=== PATIENT | male | born 1980 | race Caucasian/White ===

== ENCOUNTER 2017-11-27 03:25 | Emergency (ER) | payer OTHER, MEDICAID, SELFPAY ==
[2017-11-27 03:34] VITALS: BP 142/90; PULSE 73; RESP 16; TEMP 36.3; O2SAT 100; BMI 21.1
--- NOTE | 2017-11-27 03:36 | DI.RAD.S_ITS ---
PROCEDURE: XR CHEST 1V INDICATIONS: Upper back pain TECHNIQUE: One view of the chest was acquired. COMPARISON: None. FINDINGS: Surgical changes and devices: None. Lungs and pleura: No pleural effusions or pneumothorax. Lungs are clear. Mediastinum: Mediastinal contours appear normal. Heart size is normal. Aortic arch appears normal. No mediastinal widening. Bones and chest wall: No suspicious bony lesions. Mild upper thoracic curvature convex to the left. Overlying soft tissues appear unremarkable. IMPRESSION: No acute cardiopulmonary or osseous abnormality. Dictated by: Yony Garza M.D. on 11/27/2017 at 8:25 Approved by: Yony Garza M.D. on 11/27/2017 at 8:27
--- NOTE | 2017-11-27 03:41 | ED.NECK ---
HPI - Neck Pain/Injury General Chief Complaint: Neck Pain/Injury Stated Complaint: Pain Time Seen by Provider: 11/27/17 03:27 Source: patient Mode of arrival: EMS Limitations: no limitations History of Present Illness HPI Narrative: 37-year-old male here for evaluation of upper back and lower neck pain. Patient states that he has chronic back pain. States that last evening he took his normal 2 mg hydromorphone at home approximately 9 o'clock. States that he woke up at approximately 2 o'clock in the morning with worsening upper back and lower neck pain. No trauma. States that he took 2 more of his 2 mg hydromorphone pills approximately 45 min prior to arrival here in the emergency department. States that this is his normal pain only worse. Some problems breathing secondary to the pain. Some nausea secondary to the pain. Also has lower back pain but he states this is at baseline for him. Related Data Home Medications Medication Instructions Recorded Confirmed armodafinil [Nuvigil] 150 mg PO QDAY #0 10/10/16 fluticasone #0 10/10/16 fluticasone-salmeterol [Advair INH BID #0 10/10/16 Diskus] memantine [Namenda] 10 mg PO TID #0 10/10/16 metformin [Glucophage] 500 mg PO BIDCC #0 10/10/16 [MYDAYIS] 50 mg PO QDAY #0 06/23/17 guanfacine 2 mg PO QDAY #0 06/23/17 cyclobenzaprine 10 mg PO Q8HP PRN #0 09/19/17 hydromorphone 2 - 4 mg PO Q4HP PRN #0 09/19/17 metaxalone 800 mg PO TIDP PRN #0 09/19/17 tamsulosin [Flomax] 0.8 mg PO QDAY #0 09/19/17 Allergies Allergy/AdvReac Type Severity Reaction Status Date / Time NSAIDS (Non-Steroidal AdvReac Mild STATES ORAL Verified 11/27/17 03:54 Anti-Inflamma [NSAIDS (NON-STEROIDAL ANTI-INFLAMMA] Review of Systems Constitutional Denies chills, Denies fever(s), Denies lethargy and Denies weakness ENT Ears, Nose, Mouth, and Throat: Reports neck pain Cardiovascular Denies chest pain, Denies irregular heart rhythm, Denies lightheadedness, Denies palpitations, Reports dyspnea (Secondary to the pain) and Denies orthopnea Respiratory Denies cough, Reports dyspnea (Secondary to the pain), Denies stridor and Denies wheezing Gastrointestinal Gastrointestinal: Denies abdominal pain, Denies cramping, Denies diarrhea and Reports nausea (Secondary to the pain) Musculoskeletal Reports back pain and Reports neck pain Integumentary/Breasts Denies pruritus, Denies erythema, Denies rash and Denies wounds Neurologic Denies weakness Endocrine Denies palpitations Hematologic/Lymphatic Denies easy bruising Allergic/Immunologic Denies wheezing Exam Initial Vital Signs Initial Vital Signs: Vital Signs Temperature 97.4 F L 11/27/17 03:34 Pulse Rate 73 11/27/17 03:34 Respiratory Rate 16 11/27/17 03:34 Blood Pressure 142/90 H 11/27/17 03:34 Pulse Oximetry 100 11/27/17 03:34 Const General: cooperative and well developed Nutritional Appearance: well nourished Orientation: alert, awake, oriented x3 and not confused [facility] Head: normal to inspection and normocephalic Resp Effort & Inspection: normal respiratory effort, able to speak in complete sentences, no respiratory distress and no use of accessory muscles Auscultation: clear to auscultation bilaterally, no rales, no rhonchi and no wheezes Cardio Rate: regular rate Rhythm: regular rhythm Heart Sounds: no click, no gallops, no murmurs and no rubs Pulses: normal peripheral pulses GI Inspection: non-distended Palpation: soft, no hepatosplenomegaly, No guarding, No pulsatile mass and No tender Auscultation: normal bowel sounds Back/Spine/Pelvis Back: normal to inspection, back tenderness and No CVA tenderness Cervical Spine: No cervical spasm, cervical spinal tenderness and No step off deformity Thoracic/Lumbar Spine: thoracic and lumbar spine normal to inspection, No thoraco-lumbar spasm and thoracic spinal tenderness Skin General: no rashes or lesions noted, No jaundice and No petechiae Neuro General: alert, oriented x3, gait normal and no focal motor deficits Speech: speech normal Course Orders Ordered: ED Orders 11/27/17 03:36 XR chest 1V Stat Discontinued Medications Hydromorphone HCl (Dilaudid) 1 mg IM NOW ONE Stop: 11/27/17 03:38 Last Admin: 11/27/17 03:44 Dose: 1 mg Ketorolac Tromethamine (Toradol) 30 mg IM NOW ONE Stop: 11/27/17 03:37 Last Admin: 11/27/17 03:43 Dose: 30 mg Vital Signs - 8 hr 11/27/17 03:34 11/27/17 04:14 Temperature 97.4 F L Pulse Rate 73 64 Respiratory Rate 16 16 Blood Pressure 142/90 H Blood Pressure [Right Arm] 134/88 H Pulse Oximetry 100 95 MDM - Neck Pain/Injury Imaging Data Chest x-ray: Attestation: I personally reviewed and interpreted this imaging study as follows: My impression: Normal size heart No pneumothorax No pneumonia MDM Narrative Medical decision making narrative: Patient fell sleep here in the emergency department after the IM medication. Upon further evaluation patient reports a resolution of his symptoms. Suspected acute exacerbation of his chronic pain. Informed him he needed to contact his primary doctor to discuss pain management. He states that there is a consult placed for pain management. He was given return precautions. Will hold on further workup for now. He expressed understanding and agreement with plan Discharge Plan Departure Patient Disposition: Home, Self-Care Clinical Impression: Back pain Instructions: Back Pain (Alternative Therapy), Activity May Be Better then Rest for Low Back Pain Recovery, Thoracic Back Pain Activity Restrictions/Additional Instructions: You need to continue all of your medications as instructed. Contact your primary doctor to discuss long-term treatment of your back pain. Return to the emergency department for any new or worsening symptoms Prescriptions: No Action metformin [Glucophage] 500 MG tablet 500 mg PO BIDCC Qty: 0 RF: 0 fluticasone-salmeterol [Advair Diskus] 500 MCG/50 MCG blister with device INH BID Qty: 0 RF: 0 fluticasone 16 GM spray,suspension Qty: 0 RF: 0 memantine [Namenda] 10 MG tablet 10 mg PO TID Qty: 0 RF: 0 armodafinil [Nuvigil] 150 MG tablet 150 mg PO QDAY Qty: 0 RF: 0 [MYDAYIS] 50 mg PO QDAY Qty: 0 RF: 0 guanfacine 2 MG tablet extended release 24 hr 2 mg PO QDAY Qty: 0 RF: 0 hydromorphone 2 MG tablet 2 - 4 mg PO Q4HP PRNQty: 0 RF: 0 cyclobenzaprine 10 MG tablet 10 mg PO Q8HP PRNQty: 0 RF: 0 tamsulosin [Flomax] 0.4 MG capsule,extended release 24hr 0.8 mg PO QDAY Qty: 0 RF: 0 metaxalone 800 MG tablet 800 mg PO TIDP PRNQty: 0 RF: 0
[2017-11-27] MEDS: KETOROLAC 60 MG/2 ML VIAL 30 MG IM (03:43)
[2017-11-27] MEDS: HYDROMORPHONE 2 MG INJ 1 MG IM (03:44)
[2017-11-27 04:14] VITALS: BP 134/88; PULSE 64; RESP 16; O2SAT 95
[2017-11-27 05:14] VITALS: BP 126/88; PULSE 81; RESP 18; O2SAT 99
== END 2017-11-27 05:15 | disposition home or self-care (01) ==
LOC: ED 05:26
PROVIDERS: Emergency Provider Emergency Medicine; Family Provider Family Medicine; PCP Family Medicine
DX: M54.5 Low back pain (principal)
CPT/HCPCS: 71045; 96372; 99282; 99283; J1170; J1885

== ENCOUNTER 2018-01-20 15:50 | Emergency (ER) | payer OTHER, MEDICAID, SELFPAY ==
[2018-01-20 15:57] VITALS: BP 153/103; PULSE 65; RESP 15; O2SAT 99
--- NOTE | 2018-01-20 16:16 | PC.NURSE ---
GLF today, pt reports he lost control of his wheelchair during transfer to toilet, was unable to contact help, reports found on floor approx 5 hours later by PT, pt reports back and neck pain however reports these as chronic and unchanged after fall, denies LOC, denies injury, pt and friend concern r/t lack of director of clinical education for pt
[2018-01-20 17:24] LABS: Add Manual Diff / Slide Review NO; Basophils Percent Auto 0.7 % (0-2); Eosinophils Percent Auto 1.9 % (2-4); Hematocrit 42.7 % (41-53); Hemoglobin 14.9 g/dL (13.5-17.5); Mean Corpuscular HGB Conc 34.8 % (30-36); Mean Corpuscular Hemoglobin 31.7 PG (26-34); Mean Corpuscular Volume 91.1 fL (80-100); Monocytes Percent Auto 9.7 % (3-14); Neutrophils Absolute Auto 6200 /uL (3000-5900); Neutrophils Percent Auto 69.7 % (50-75); Platelet Count 213 X10^3/uL (150-400); Red Blood Cell Count 4.69 X10^6/uL (4.5-5.9); Red Cell Distribution Width 14.2 % (11.6-14.8); White Blood Cell Count 8.9 X10^3/uL (4.5-11.0)
[2018-01-20 17:36] LABS: Alanine Aminotransferase 30 IU/L (21-72); Albumin 4.4 g/dL (3.5-5.0); Alkaline Phosphatase 55 U/L (38-126); Aspartate Aminotransferase 18 IU/L (17-59); BUN Creatinine Ratio 18.8 (6-22); Bilirubin Total 0.7 mg/dL (0.2-1.3); Blood Urea Nitrogen 15 mg/dL (9-20); Calcium 9.7 mg/dL (8.4-10.2); Carbon Dioxide 31 mmol/L (22-32); Chloride 102 mmol/L (98-107); Estimated Glomerular Filt Rate > 60.0 mL/min (>60); Globulin 2.2 g/dL (1.7-4.1); Glucose 98 mg/dL (70-100); HEMOLYSIS < 15 (0-50); Sodium 140 mmol/L (137-145); Total Protein 6.6 g/dL (6.3-8.2)
[2018-01-20 19:16] LABS: Creatine Kinase 60 U/L (55-170)
--- NOTE | 2018-01-20 19:26 | ED_ITS ---
HPI - Back Pain/Injury <BETO Weeks - Last Filed: 01/20/18 22:37> General Chief Complaint: Back Pain/Injury Stated Complaint: Found laying in Bathroom Time Seen by Provider: 01/20/18 16:05 History of Present Illness HPI Narrative: 37-year-old male with history of psychological and neuro disorders here for complaint of falling out of his wheelchair earlier today. He is currently unable to speak due to 1 of his neurological deficits of unknown etiology he is currently a being evaluated by Neurology at [facility]. He also reports that he has muscle spasms to all extremities at times. He states that he had muscle spasms earlier today when he was transferring out of his wheelchair and he fell on the bathroom floor. He states that he does not feel any increased pain into any of the extremities he denies hitting his head. No loss of consciousness. He is unable to ambulate however this is not new for him. He denies any other concerns or complaints at this time. He has good sensation to all 4 extremities. He does have range of motion to all 4 extremities although when he tries to move his extremities he starts to get variable muscle spasms. He states that he was on the floor for several hours before he was able to get help. Positive p.o. intake. No nausea vomiting MD Complaint: fall Related Data Home Medications Medication Instructions Recorded Confirmed armodafinil [Nuvigil] 150 mg PO QDAY #0 10/10/16 01/20/18 memantine [Namenda] 10 mg PO TID #0 10/10/16 01/20/18 metformin [Glucophage] 500 mg PO BIDCC #0 10/10/16 01/20/18 dextroamphetamine-amphetamine 50 mg PO QDAY #0 06/23/17 01/20/18 [Mydayis] hydromorphone 2 - 4 mg PO Q4HP PRN #0 09/19/17 01/20/18 tamsulosin [Flomax] 0.8 mg PO QDAY #0 09/19/17 01/20/18 Flovent HFA 1 puff INHALATION DIRECTED 01/20/18 01/20/18 Remeron 1 dose PO DIRECTED 01/20/18 01/20/18 Sinemet 1 dose PO DIRECTED 01/20/18 01/20/18 bisacodyl 1 tab PO DIRECTED 01/20/18 01/20/18 fluticasone-salmeterol [Advair 1 puff INHALATION BID 01/20/18 01/20/18 Diskus] guanfacine [Intuniv ER] 3 tab PO DAILY 01/20/18 01/20/18 metaxalone 1 tab PO TID PRN 01/20/18 01/20/18 Allergies Allergy/AdvReac Type Severity Reaction Status Date / Time latex Allergy Verified 01/20/18 16:10 NSAIDS (Non-Steroidal AdvReac Mild STATES ORAL Verified 11/27/17 03:54 Anti-Inflamma [NSAIDS (NON-STEROIDAL ANTI-INFLAMMA] Review of Systems <BETO Weeks - Last Filed: 01/20/18 22:37> Review of Systems Fall from wheelchair earlier today Constitutional Denies chills, Denies fever(s), Denies lethargy and Denies weakness Eyes Denies change in vision, Denies eye discharge, Denies irritation and Denies loss of vision ENT Ears, Nose, Mouth, and Throat: Denies change in voice, Denies neck pain and Denies sore throat Cardiovascular Denies chest pain, Denies irregular heart rhythm, Denies lightheadedness, Denies palpitations, Denies dyspnea, Denies dyspnea on exertion and Denies orthopnea Respiratory Denies cough, Denies dyspnea, Denies dyspnea on exertion and Denies wheezing Gastrointestinal Gastrointestinal: Denies abdominal pain, Denies change in bowel habits, Denies diarrhea, Denies nausea and Denies vomiting Genitourinary Denies hematuria, Denies flank pain, Denies urinary incontinence and Denies urinary urgency Musculoskeletal Denies neck pain Integumentary/Breasts Denies pruritus, Denies erythema, Denies rash and Denies wounds Neurologic Denies confusion, Denies loss of vision and Denies weakness Psychiatric Denies anxiety, Denies confusion, Denies depression, Denies homicidal ideation and Denies suicidal ideation Endocrine Denies palpitations Hematologic/Lymphatic Denies easy bruising Allergic/Immunologic Denies wheezing Exam <BETO Weeks - Last Filed: 01/20/18 22:37> Initial Vital Signs Initial Vital Signs: Vital Signs Pulse Rate 65 01/20/18 15:57 Respiratory Rate 15 01/20/18 15:57 Blood Pressure 153/103 H 01/20/18 15:57 Pulse Oximetry 99 01/20/18 15:57 Const General: cooperative and well developed Nutritional Appearance: well nourished Orientation: alert, awake, oriented x3 and not confused Limitations: language barrier (Patient unable to talk however is able to effectively communicate on his phone by typing) [facility] Head: normal to inspection, normocephalic and atraumatic Mouth: oral mucosae normal and moist mucous membranes Eyes General: appearance normal, both eyes and all related structures Eyelids: eyelids normal Conjunctivae: conjunctivae normal Sclera: sclerae normal Pupils: PERRL EOM: EOM intact bilaterally Neck Neck: normal visual inspection, trachea midline, No lymphadenopathy, No midline deformity and No JVD Lymphatic: No lymphedema Chest Chest: normal inspection of the chest Resp Effort & Inspection: normal respiratory effort, able to speak in complete sentences, no respiratory distress and no use of accessory muscles Auscultation: clear to auscultation bilaterally, no rales, no rhonchi and no wheezes Cardio Rate: regular rate Rhythm: regular rhythm Heart Sounds: no click, no gallops, no murmurs and no rubs Pulses: normal peripheral pulses Skin General: no rashes or lesions noted, No jaundice and No petechiae Neuro Speech: other (Patient is unable to speak at all not new finding) Gait: other (Patient is unable to ambulate not a new finding) Motor: fasciculations (Patient does have range of motion however does have random muscle spasms to all 4 extremities when he does try to move.) and movement abnormality noted <Tessy Menard DO - Last Filed: 01/23/18 01:23> Initial Vital Signs Initial Vital Signs: Vital Signs Pulse Rate 65 01/20/18 15:57 Respiratory Rate 15 01/20/18 15:57 Blood Pressure 153/103 H 01/20/18 15:57 Pulse Oximetry 99 01/20/18 15:57 Course <BETO Weeks - Last Filed: 01/20/18 22:37> Orders Ordered: ED Orders 01/20/18 17:17 Complete Blood Count AUTO DIFF Stat Comprehensive Metabolic Panel Stat Creatine Kinase Stat Vital Signs - 8 hr 01/20/18 15:57 01/20/18 20:08 01/20/18 21:29 Temperature 98.2 F Pulse Rate 65 69 70 Respiratory Rate 15 14 16 Blood Pressure 153/103 H 140/80 H Blood Pressure [Right Arm] 148/85 H Pulse Oximetry 99 98 98 <Tessy Menard DO - Last Filed: 01/23/18 01:23> Orders Ordered: ED Orders 01/20/18 17:17 Complete Blood Count AUTO DIFF Stat Comprehensive Metabolic Panel Stat Creatine Kinase Stat Vital Signs - 8 hr 01/20/18 15:57 01/20/18 20:08 01/20/18 21:29 Temperature 98.2 F Pulse Rate 65 69 70 Respiratory Rate 15 14 16 Blood Pressure 153/103 H 140/80 H Blood Pressure [Right Arm] 148/85 H Pulse Oximetry 99 98 98 MDM - Back Pain/Injury <BETO Weeks - Last Filed: 01/20/18 22:37> Lab Data Result diagrams: 01/20/18 17:17 01/20/18 17:17 Lab Results 01/20/18 01/20/18 01/20/18 Range/Units 17:17 17:17 17:17 WBC 8.9 (4.5-11.0) X10^3/uL RBC 4.69 (4.5-5.9) X10^6/uL Hgb 14.9 (13.5-17.5) g/dL Hct 42.7 (41-53) % MCV 91.1 (80-100) fL MCH 31.7 (26-34) PG MCHC 34.8 (30-36) % RDW 14.2 (11.6-14.8) % Plt Count 213 (150-400) X10^3/uL Neut % (Auto) 69.7 (50-75) % Lymph % (Auto) 18.0 L (25-40) % [place] % (Auto) 9.7 (3-14) % Eos % (Auto) 1.9 L (2-4) % Baso % (Auto) 0.7 (0-2) % Neut # (Auto) 6200 H (6292-9334) /uL Sodium 140 (137-145) mmol/L Potassium 4.0 (3.4-5.1) mmol/L Chloride 102 (98-107) mmol/L Carbon Dioxide 31 (22-32) mmol/L BUN 15 (9-20) mg/dL Creatinine 0.80 (0.66-1.25) mg/dL Estimated GFR > 60.0 (>60) mL/min BUN/Creatinine Ratio 18.8 (6-22) Glucose 98 (70-100) mg/dL Calcium 9.7 (8.4-10.2) mg/dL Total Bilirubin 0.7 (0.2-1.3) mg/dL AST 18 (17-59) IU/L ALT 30 (21-72) IU/L Alkaline Phosphatase 55 (38-126) U/L Total Creatine Kinase 60 (55-170) U/L Total Protein 6.6 (6.3-8.2) g/dL Albumin 4.4 (3.5-5.0) g/dL Globulin 2.2 (1.7-4.1) g/dL Albumin/Globulin Ratio 2.0 (1.0-2.8) MDM Narrative Medical decision making narrative: Patient here with no acute complaints at this time. Fall is due to his ongoing issues with muscle spasms. Patient with chronic neurological issues however no acute issues today. Normal exam no signs of trauma. CK was obtained and was negative. CBC and Chem panel was also obtained and was unremarkable. Urinalysis was normal. Patient is informed to follow up with Neurology as scheduled. Follow up with primary care provider. Return emergency room for any worsening symptoms <Tessy Menard, - Last Filed: 01/23/18 01:23> Lab Data Lab Results 01/20/18 01/20/18 01/20/18 Range/Units 17:17 17:17 17:17 WBC 8.9 (4.5-11.0) X10^3/uL RBC 4.69 (4.5-5.9) X10^6/uL Hgb 14.9 (13.5-17.5) g/dL Hct 42.7 (41-53) % MCV 91.1 (80-100) fL MCH 31.7 (26-34) PG MCHC 34.8 (30-36) % RDW 14.2 (11.6-14.8) % Plt Count 213 (150-400) X10^3/uL Neut % (Auto) 69.7 (50-75) % Lymph % (Auto) 18.0 L (25-40) % [place] % (Auto) 9.7 (3-14) % Eos % (Auto) 1.9 L (2-4) % Baso % (Auto) 0.7 (0-2) % Neut # (Auto) 6200 H (1171-0032) /uL Sodium 140 (137-145) mmol/L Potassium 4.0 (3.4-5.1) mmol/L Chloride 102 (98-107) mmol/L Carbon Dioxide 31 (22-32) mmol/L BUN 15 (9-20) mg/dL Creatinine 0.80 (0.66-1.25) mg/dL Estimated GFR > 60.0 (>60) mL/min BUN/Creatinine Ratio 18.8 (6-22) Glucose 98 (70-100) mg/dL Calcium 9.7 (8.4-10.2) mg/dL Total Bilirubin 0.7 (0.2-1.3) mg/dL AST 18 (17-59) IU/L ALT 30 (21-72) IU/L Alkaline Phosphatase 55 (38-126) U/L Total Creatine Kinase 60 (55-170) U/L Total Protein 6.6 (6.3-8.2) g/dL Albumin 4.4 (3.5-5.0) g/dL Globulin 2.2 (1.7-4.1) g/dL Albumin/Globulin Ratio 2.0 (1.0-2.8) Discharge Plan Departure Patient Disposition: Home, Self-Care Clinical Impression: Fall, Muscle spasms of both lower extremities Discharge Date/Time: 01/20/18 21:30 Interventions: ED Discharge Assessment Last Done: 01/20/18 21:29 Instructions: How to Prevent Falls Activity Restrictions/Additional Instructions: Laboratory results today were unremarkable. Normal exam today with no signs of trauma. Fall today most likely secondary to your neurological issues. Recommend following up with Neurology as scheduled. Follow up with her primary care provider. Recommend help when transferring from wheelchair to bed or to commode as to prevent falls in the future. For any worsening symptoms return to the emergency room. Prescriptions: No Action metformin [Glucophage] 500 MG tablet 500 mg PO BIDCC Qty: 0 RF: 0 memantine [Namenda] 10 MG tablet 10 mg PO TID Qty: 0 RF: 0 armodafinil [Nuvigil] 150 MG tablet 150 mg PO QDAY Qty: 0 RF: 0 dextroamphetamine-amphetamine [Mydayis] 50 mg Capsule, Er Triphasic 24 Hr 50 mg PO QDAY Qty: 0 RF: 0 hydromorphone 2 MG tablet 2 - 4 mg PO Q4HP PRN (Reason: Pain, Moderate) Qty: 0 RF: 0 tamsulosin [Flomax] 0.4 MG capsule,extended release 24hr 0.8 mg PO QDAY Qty: 0 RF: 0 fluticasone-salmeterol [Advair Diskus] 500-50 mcg/dose blister with device 1 puff Inhalation BID RF: 0 bisacodyl 5 mg Tablet 1 tab PO DIRECTED RF: 0 metaxalone 800 mg tablet 1 tab PO TID PRN (Reason: Muscle Pain) RF: 0 guanfacine [Intuniv ER] 1 mg tablet extended release 24 hr 3 tab PO DAILY RF: 0 Flovent HFA 1 puff Inhalation DIRECTED RF: 0 Remeron 1 dose PO DIRECTED RF: 0 Sinemet 1 dose PO DIRECTED RF: 0 Referrals: Ney Rodriguez MD [Primary Care Provider] - <Tessy Menard DO - Last Filed: 01/23/18 01:23> Cosign ED Attending Cosignature Attestation: I was immediately available in the department for consultation. Documentation has been reviewed. I agree with assessment and plan.
[2018-01-20 20:08] VITALS: BP 148/85; PULSE 69; RESP 14; O2SAT 98
[2018-01-20 21:29] VITALS: BP 140/80; PULSE 70; RESP 16; TEMP 36.8; O2SAT 98
== END 2018-01-20 21:30 | disposition home or self-care (01) ==
PROVIDERS: Emergency Provider Nurse Practitioner Family; Family Provider Family Medicine; PCP Family Medicine
DX: M62.838 Other muscle spasm (principal); W19.XXXA Unspecified fall, initial encounter
CPT/HCPCS: 36415; 80053; 81003; 82550; 85025; 99282; 99283

== ENCOUNTER 2018-03-31 11:03 | Emergency (ER) | payer OTHER, MEDICAID, SELFPAY ==
[2018-03-31 11:21] VITALS: BP 140/90; PULSE 102; RESP 14; TEMP 37.1; O2SAT 100; BMI 21.2
--- NOTE | 2018-03-31 11:34 | ED.EXTPRO ---
HPI - Extremity Problem General Chief complaint: Extremity Problem,Nontraumatic Stated complaint: NUMBNESS IN SHOULDER AND RT ARM Time Seen by Provider: 03/31/18 11:20 Source: patient, family and old records reviewed Mode of arrival: wheelchair History of Present Illness HPI Narrative: Patient is a 37-year-old male who has a history of lower extremity dystonia well he has aphasic communicates by texting in his phone and with his caregivers. He presents today with right arm weakness numbness tingling and burning sensation. He does have a history a C5 C6-7 fusion. He denies any injury. He has difficulty lifting his right arm where as yesterday he was able to. This morning he woke up and was unable to move it. He has pain in his shoulders as well. Also no injury. Related Data Home Medications Medication Instructions Recorded Confirmed memantine [Namenda] 10 mg PO TID #0 10/10/16 03/31/18 metformin [Glucophage] 500 mg PO BIDCC #0 10/10/16 03/31/18 tamsulosin [Flomax] 0.8 mg PO QDAY #0 09/19/17 03/31/18 fluticasone-salmeterol [Advair 1 puff INHALATION BID 01/20/18 03/31/18 Diskus] albuterol sulfate [ProAir HFA] 2 puff INHALATION Q4H PRN 03/31/18 03/31/18 cyclobenzaprine 10 mg PO Q8H PRN 03/31/18 03/31/18 dextroamphetamine-amphetamine 1 cap PO DAILY 03/31/18 03/31/18 [Mydayis] fluticasone furoate 2 spray INTRANASAL DAILY 03/31/18 03/31/18 guanfacine [Intuniv ER] 3 tab PO DAILY 03/31/18 03/31/18 lisinopril 10 mg PO DAILY 03/31/18 03/31/18 methylphenidate HCl 1 cap PO DAILY 03/31/18 03/31/18 mirtazapine 15 mg PO BEDTIME 03/31/18 03/31/18 naproxen [Naprosyn] 1 tab PO Q12H PRN 03/31/18 03/31/18 sennosides [senna] 2 tab PO BID 03/31/18 03/31/18 Previous Rx's Medication Instructions Recorded ropinirole [Requip] 0.25 mg PO TID #90 tab 03/31/18 Allergies Allergy/AdvReac Type Severity Reaction Status Date / Time latex Allergy Verified 03/31/18 12:27 NSAIDS (Non-Steroidal AdvReac Mild STATES ORAL Verified 03/31/18 12:27 Anti-Inflamma [NSAIDS (NON-STEROIDAL ANTI-INFLAMMA] Review of Systems Review of Systems All systems reviewed & are unremarkable except as noted in HPI and below Constitutional Denies chills, Denies fever(s) and Denies lethargy Eyes Denies blurry vision and Denies change in vision Cardiovascular Denies chest pain, Denies irregular heart rhythm, Denies lightheadedness, Denies palpitations, Denies dyspnea, Denies dyspnea on exertion and Denies orthopnea Respiratory Denies cough, Denies dyspnea, Denies dyspnea on exertion and Denies wheezing Gastrointestinal Gastrointestinal: Denies abdominal pain, Denies change in bowel habits, Denies diarrhea, Denies nausea and Denies vomiting Musculoskeletal Reports as per HPI, Reports numbness and Reports tingling Integumentary/Breasts Denies pruritus, Denies erythema, Denies rash and Denies wounds Neurologic Reports as per HPI, Reports lack of coordination, Reports numbness, Reports tingling and Reports paresthesias Comments: Movement disorder Endocrine Denies palpitations Allergic/Immunologic Denies wheezing [facility] Medical History Aphasia (Acute) Bipolar 1 disorder (Acute) Cervical radicular pain (Acute) Dystonia (Acute) Surgical History S/P cervical spinal fusion (Acute) Social History Smoking Status: Never smoker Exam Initial Vital Signs Initial Vital Signs: Vital Signs Temperature 98.7 F 03/31/18 11:21 Pulse Rate 102 H 03/31/18 11:21 Respiratory Rate 14 03/31/18 11:21 Blood Pressure 140/90 03/31/18 11:21 Pulse Oximetry 100 03/31/18 11:21 GENERAL: Well-appearing young male in no acute distress HEENT: Head atraumatic,EOMI, pupils reactive, face symmetric, neck is nontender no JVD CARDIOVASCULAR: Regular rate and rhythm without murmurs, rubs or gallops. RESPIRATORY: Breath sounds equal bilaterally, no wheezes rales or rhonchi. ABDOMEN: Soft, nontender. Normoactive bowel sounds all 4 quadrants. No guarding or rebound. EXTREMITIES: Normal range of motion, no clubbing or edema. Neurovascularly intact Unable to lift right arm against gravity. Radial median and ulnar nerves are also weak. He does have sensation is but no motor. Passive motion he does have some resistance and shaking. NEUROLOGICAL: Alert and oriented x4. Face symmetric Cranial nerves II through XII grossly intact. SKIN: Warm, dry, no laceration, no petechiae, no rashes or lesions. Course Orders Ordered: ED Orders 03/31/18 11:44 XR shoulder RT min 2V Stat 03/31/18 11:51 CT cervical spine wo con Stat Discontinued Medications Cyclobenzaprine HCl (Flexeril) 5 mg PO NOW ONE Stop: 03/31/18 13:15 Last Admin: 03/31/18 13:22 Dose: 5 mg Diazepam (Valium) 5 mg PO NOW ONE Stop: 03/31/18 11:45 Last Admin: 03/31/18 12:25 Dose: Not Given Ketorolac Tromethamine (Toradol) 60 mg IM NOW ONE Stop: 03/31/18 12:26 Last Admin: 03/31/18 12:27 Dose: 60 mg Vital Signs - 8 hr 03/31/18 11:21 03/31/18 12:05 03/31/18 13:38 Temperature 98.7 F Pulse Rate 102 H 96 H Pulse Rate [Bilateral Radial] 95 H Respiratory Rate 14 15 Blood Pressure 140/90 Blood Pressure [Left Arm] 134/88 Pulse Oximetry 100 99 MDM - Extremity (Nontraumatic) Imaging Data Right shoulder x-ray: Radiologist's impression: PROCEDURE: XR SHOULDER RT MIN 2V INDICATIONS: pain weakness TECHNIQUE: 3 views of the shoulder were acquired. COMPARISON: None. FINDINGS: Bones: No fractures or dislocations. No suspicious bony lesions. Visualized ribs appear intact. Joint spaces are fairly well-preserved. Soft tissues: No suspicious soft tissue calcifications. IMPRESSION: Unremarkable radiographic examination of right shoulder. No fracture or dislocation. Dictated by: Theo Ace M.D. on 03/31/2018 at 12:[address]: Radiologist's impression: PROCEDURE: CT CERVICAL SPINE WO CON INDICATIONS: weakness right arm and neck pain, no injury prior fusion TECHNIQUE: Noncontrast 3 mm thick sections acquired from the skull base to the T4 level. Sagittal and coronal reformats were then constructed. For radiation dose reduction, the following was used: automated exposure control, adjustment of mA and/or kV according to patient size. COMPARISON: [facility], CR, XR SHOULDER RT MIN 2V, 03/31/2018, 11:28. [facility], CR, XR CHEST 1V, 11/27/2017, 3:42. [facility], CT, C-SPINE WITHOUT CONTRAST, 09/19/2017, 17:01. FINDINGS: Image quality: Excellent. Bones: No fractures or dislocations. Visualized superior ribs are intact. Postoperative changes are seen with anteriorly placed fixation devices at C5-C6 and C6-C7. No findings of hardware failure or hardware loosening are seen. Degenerative changes are seen, including moderate central canal narrowing at C5-C6 and C6-C7. Soft tissues: Prevertebral soft tissues are normal in thickness. No paravertebral hematomas. No apical pneumothoraces. The previously seen left lung apex pulmonary nodule is not definitely seen on the current study. IMPRESSION: Unremarkable postoperative study. Stable degenerative changes are seen. Dictated by: Fabio Marcial M.D. on 03/31/2018 at 11:[address] [facility] Narrative Medical decision making narrative: This seems to be muscle and spasm. As I have spoken with Dr. Jim Rodriguez MD is his neurologist. He does agree that this may be a progressive dystonia. At this time no MRI indicated. He recommends levodopa carbidopa although he tried once and did not tolerate it. If that is the case he would recommend Requip is 0.25 mg 3 times a day. He also previously made a referral to the [facility] to the movement Disorder Clinic which he still strongly recommend that the patient go to. I spoke with the patient about this. Apparently [facility] did not approve it in the past but he would like to try to get there. He agrees to take Requip. The pain is overall better after Toradol and Flexeril. Discharge Plan Departure Patient Disposition: Home Clinical Impression: Dystonia Discharge Date/Time: 03/31/18 14:29 Interventions: ED Discharge Assessment Last Done: 03/31/18 14:28 Instructions: Dystonia Movement Disorders Activity Restrictions/Additional Instructions: *You have been diagnosed with dystonia *What to do: Dr. jimenez recommended [facility]. Please continue to call [employer] for approval. *Continue to take medications as directed Requip 0.25 mg 3 times a day has been faxed to [facility] in [place] *Follow up with your primary care provider in 2-3 days *Return to ER if you should have increased pain, weakness or any new, worsening or concerning symptoms Prescriptions: New ropinirole [Requip] 0.25 mg tablet 0.25 mg PO TID Qty: 90 RF: 0 No Action metformin [Glucophage] 500 MG tablet 500 mg PO BIDCC Qty: 0 RF: 0 memantine [Namenda] 10 MG tablet 10 mg PO TID Qty: 0 RF: 0 tamsulosin [Flomax] 0.4 MG capsule,extended release 24hr 0.8 mg PO QDAY Qty: 0 RF: 0 fluticasone-salmeterol [Advair Diskus] 500-50 mcg/dose blister with device 1 puff Inhalation BID RF: 0 cyclobenzaprine 10 mg tablet 10 mg PO Q8H PRN (Reason: Muscle Spasm) RF: 0 sennosides [senna] 8.6 mg Tablet 2 tab PO BID RF: 0 lisinopril 10 mg tablet 10 mg PO DAILY RF: 0 mirtazapine 15 mg Tablet 15 mg PO BEDTIME RF: 0 albuterol sulfate [ProAir HFA] 90 mcg/actuation Hfa Aerosol Inhaler 2 puff Inhalation Q4H PRN (Reason: Shortness Of Breath) RF: 0 naproxen [Naprosyn] 500 mg Tablet 1 tab PO Q12H PRN (Reason: pain) RF: 0 methylphenidate HCl 40 mg capsule,ER biphasic 50-50 1 cap PO DAILY RF: 0 fluticasone furoate 27.5 mcg/actuation [place],Suspension 2 spray Intranasal DAILY RF: 0 guanfacine [Intuniv ER] 1 mg tablet extended release 24 hr 3 tab PO DAILY RF: 0 dextroamphetamine-amphetamine [Mydayis] 50 mg capsule, ER triphasic 24 hr 1 cap PO DAILY RF: 0 Referrals: Ney Rodriguez MD [Primary Care Provider] - Jim Rodriguez MD [Non-Staff] -
--- NOTE | 2018-03-31 11:44 | DI.RAD.S_ITS ---
PROCEDURE: XR SHOULDER RT MIN 2V INDICATIONS: pain weakness TECHNIQUE: 3 views of the shoulder were acquired. COMPARISON: None. FINDINGS: Bones: No fractures or dislocations. No suspicious bony lesions. Visualized ribs appear intact. Joint spaces are fairly well-preserved. Soft tissues: No suspicious soft tissue calcifications. IMPRESSION: Unremarkable radiographic examination of right shoulder. No fracture or dislocation. Dictated by: Theo Ace M.D. on 03/31/2018 at 12:21 Approved by: Theo Ace M.D. on 03/31/2018 at 12:22
--- NOTE | 2018-03-31 11:51 | DI.CT.S_ITS ---
PROCEDURE: CT CERVICAL SPINE WO CON INDICATIONS: weakness right arm and neck pain, no injury prior fusion TECHNIQUE: Noncontrast 3 mm thick sections acquired from the skull base to the T4 level. Sagittal and coronal reformats were then constructed. For radiation dose reduction, the following was used: automated exposure control, adjustment of mA and/or kV according to patient size. COMPARISON: [facility], CR, XR SHOULDER RT MIN 2V, 03/31/2018, 11:28. [facility], CR, XR CHEST 1V, 11/27/2017, 3:42. [facility], CT, C-SPINE WITHOUT CONTRAST, 09/19/2017, 17:01. FINDINGS: Image quality: Excellent. Bones: No fractures or dislocations. Visualized superior ribs are intact. Postoperative changes are seen with anteriorly placed fixation devices at C5-C6 and C6-C7. No findings of hardware failure or hardware loosening are seen. Degenerative changes are seen, including moderate central canal narrowing at C5-C6 and C6-C7. Soft tissues: Prevertebral soft tissues are normal in thickness. No paravertebral hematomas. No apical pneumothoraces. The previously seen left lung apex pulmonary nodule is not definitely seen on the current study. IMPRESSION: Unremarkable postoperative study. Stable degenerative changes are seen. Dictated by: Fabio Marcial M.D. on 03/31/2018 at 11:11 Approved by: Fabio Marcial M.D. on 03/31/2018 at 11:14
[2018-03-31 12:05] VITALS: PULSE 95
[2018-03-31] MEDS: KETOROLAC 60 MG/2 ML VIAL IM (12:27)
[2018-03-31] MEDS: CYCLOBENZAPRINE 5 MG TABLET PO (13:22)
[2018-03-31 13:38] VITALS: BP 134/88; PULSE 96; RESP 15; O2SAT 99
== END 2018-03-31 14:29 | disposition home or self-care (01) ==
PROVIDERS: Emergency Provider Emergency Medicine; Family Provider Family Medicine; PCP Family Medicine
DX: G24.9 Dystonia, unspecified (principal)
CPT/HCPCS: 72125; 73030; 96372; 99282; 99284; J1885

== ENCOUNTER 2018-04-01 11:27 | Emergency (ER) | payer OTHER, MEDICAID, SELFPAY ==
[2018-04-01 11:30] VITALS: BP 136/97; PULSE 110; RESP 24; TEMP 36.6; O2SAT 100
--- NOTE | 2018-04-01 12:04 | ED.WEAKNESS ---
HPI - Weakness <BETO Weeks - Last Filed: 04/01/18 19:19> General Chief complaint: Weakness Stated complaint: Can't move and spasms Time Seen by Provider: 04/01/18 12:41 Source: patient Mode of arrival: other Limitations: physical limitation History of Present Illness HPI Narrative: 37-year-old male with history of dystonia and aphasia That is a nonsmoker.here for complaint of not being able to move his right upper extremity that started a couple days ago. He also reports having increased weakness to his lower extremities as well. He denies any trauma to the upper arm. He denies any trauma to the neck or to the head. No headache. No fevers no chills. He was seen yesterday here in the emergency room for the same symptoms. He is back today because he states that he does not want to take the Requip as prescribed as he is concerned about the side effects. also has a referral to [facility] which she has not obtained an appointment as of yet. States he is concerned about being at home due to the changes in his condition and is concerned about him being able to take care of himself. he states he has nobody at home at nights not going to go home alone. Related Data Home Medications Medication Instructions Recorded Confirmed memantine [Namenda] 10 mg PO TID #0 10/10/16 04/01/18 metformin [Glucophage] 500 mg PO BIDCC #0 10/10/16 04/01/18 tamsulosin [Flomax] 0.8 mg PO QDAY #0 09/19/17 04/01/18 fluticasone-salmeterol [Advair 1 puff INHALATION BID 01/20/18 04/01/18 Diskus] albuterol sulfate [ProAir HFA] 2 puff INHALATION Q4H PRN 03/31/18 04/01/18 cyclobenzaprine 10 mg PO Q8H PRN 03/31/18 04/01/18 dextroamphetamine-amphetamine 1 cap PO DAILY 03/31/18 04/01/18 [Mydayis] fluticasone furoate 2 spray INTRANASAL DAILY 03/31/18 04/01/18 guanfacine [Intuniv ER] 3 tab PO DAILY 03/31/18 04/01/18 lisinopril 10 mg PO DAILY 03/31/18 04/01/18 methylphenidate HCl 1 cap PO DAILY 03/31/18 04/01/18 mirtazapine 15 mg PO BEDTIME 03/31/18 04/01/18 naproxen [Naprosyn] 1 tab PO Q12H PRN 03/31/18 04/01/18 sennosides [senna] 2 tab PO BID 03/31/18 04/01/18 Previous Rx's Medication Instructions Recorded ropinirole [Requip] 0.25 mg PO TID #90 tab 03/31/18 Allergies Allergy/AdvReac Type Severity Reaction Status Date / Time latex Allergy Verified 03/31/18 12:27 NSAIDS (Non-Steroidal AdvReac Mild STATES ORAL Verified 03/31/18 12:27 Anti-Inflamma [NSAIDS (NON-STEROIDAL ANTI-INFLAMMA] Review of Systems <BETO Weeks - Last Filed: 04/01/18 19:19> Constitutional Reports weakness Eyes Denies change in vision, Denies eye discharge, Denies irritation and Denies loss of vision ENT Ears, Nose, Mouth, and Throat: Denies change in voice, Denies neck pain and Denies sore throat Cardiovascular Denies chest pain, Denies irregular heart rhythm, Denies lightheadedness, Denies palpitations, Denies dyspnea, Denies dyspnea on exertion and Denies orthopnea Respiratory Denies cough, Denies dyspnea, Denies dyspnea on exertion and Denies wheezing Gastrointestinal Gastrointestinal: Denies abdominal pain, Denies change in bowel habits, Denies diarrhea, Denies nausea and Denies vomiting Genitourinary Denies hematuria, Denies flank pain, Denies urinary incontinence and Denies urinary urgency Musculoskeletal Denies neck pain Comments: inability to move the right arm and bilateral lower extremities. Integumentary/Breasts Denies pruritus, Denies erythema, Denies rash and Denies wounds Neurologic Denies confusion, Denies loss of vision and Reports weakness Psychiatric Denies anxiety, Denies confusion, Denies depression, Denies homicidal ideation and Denies suicidal ideation Endocrine Denies palpitations Hematologic/Lymphatic Denies easy bruising Allergic/Immunologic Denies wheezing Exam <BETO Weeks - Last Filed: 04/01/18 19:19> Initial Vital Signs Initial Vital Signs: Vital Signs Temperature 98 F 04/01/18 11:30 Pulse Rate 110 H 04/01/18 11:30 Respiratory Rate 24 04/01/18 11:30 Blood Pressure 136/97 H 04/01/18 11:30 Pulse Oximetry 100 04/01/18 11:30 Const General: cooperative and well developed Nutritional Appearance: well nourished Orientation: alert, awake, oriented x3 and not confused [facility] Mouth: oral mucosae normal and oropharynx normal Eyes Conjunctivae: conjunctivae normal Sclera: sclerae normal Pupils: PERRL EOM: EOM intact bilaterally Neck Neck: normal visual inspection, trachea midline, No lymphadenopathy, No midline deformity and No JVD Lymphatic: No lymphedema Resp Effort & Inspection: normal respiratory effort, able to speak in complete sentences, no respiratory distress and no use of accessory muscles Auscultation: clear to auscultation bilaterally, no rales, no rhonchi and no wheezes Cardio Rate: regular rate Rhythm: regular rhythm Heart Sounds: no click, no gallops, no murmurs and no rubs Pulses: normal peripheral pulses Skin General: no rashes or lesions noted, No jaundice and No petechiae Neuro General: alert, awake, oriented x3, does not move all extremities and unable to assess gait Cranial Nerves: CN's II-XI intact bilaterally Speech: other ( does not speak use his phone to communicate. ) Gait: staggering Sensory Exam: no sensory deficits noted Other: sensation intact to all 4 extremities. Does not move his right arm or bilateral Lower extremities. Extrem Other: distal pulses to all 4 extremities intact <Irish Laird MD - Last Filed: 04/02/18 08:03> Initial Vital Signs Initial Vital Signs: Vital Signs Temperature 98 F 04/01/18 11:30 Pulse Rate 110 H 04/01/18 11:30 Respiratory Rate 24 04/01/18 11:30 Blood Pressure 136/97 H 04/01/18 11:30 Pulse Oximetry 100 04/01/18 11:30 Course <BETO Weeks - Last Filed: 04/01/18 19:19> Orders Ordered: Discontinued Medications Sodium Chloride (Normal Saline 0.9%) 1,000 mls @ 1,000 mls/hr IV BOLUS ONE Stop: 04/01/18 16:12 Last Infusion: 04/01/18 17:45 Dose: 0 mls/hr Admin: 04/01/18 15:38 Dose: 1,000 mls/hr Lorazepam (Ativan) 1 mg IV NOW ONE Stop: 04/01/18 15:14 Last Admin: 04/01/18 15:38 Dose: 1 mg Vital Signs - 8 hr 04/01/18 11:30 04/01/18 12:36 04/01/18 14:06 Temperature 98 F 98.0 F Pulse Rate 110 H 110 H 109 H Respiratory Rate 24 24 16 Blood Pressure 136/97 H Blood Pressure [Left Arm] 136/97 H 146/93 H Pulse Oximetry 100 100 100 04/01/18 15:29 04/01/18 17:50 Temperature Pulse Rate 107 H 96 H Respiratory Rate 14 16 Blood Pressure Blood Pressure [Left Arm] 130/87 129/82 Pulse Oximetry 99 100 <Irish Laird MD - Last Filed: 04/02/18 08:03> Orders Ordered: Discontinued Medications Sodium Chloride (Normal Saline 0.9%) 1,000 mls @ 1,000 mls/hr IV BOLUS ONE Stop: 04/01/18 16:12 Last Infusion: 04/01/18 17:45 Dose: 0 mls/hr Admin: 04/01/18 15:38 Dose: 1,000 mls/hr Lorazepam (Ativan) 1 mg IV NOW ONE Stop: 04/01/18 15:14 Last Admin: 04/01/18 15:38 Dose: 1 mg Vital Signs - 8 hr 04/01/18 11:30 04/01/18 12:36 04/01/18 14:06 Temperature 98 F 98.0 F Pulse Rate 110 H 110 H 109 H Respiratory Rate 24 24 16 Blood Pressure 136/97 H Blood Pressure [Left Arm] 136/97 H 146/93 H Pulse Oximetry 100 100 100 04/01/18 15:29 04/01/18 17:50 Temperature Pulse Rate 107 H 96 H Respiratory Rate 14 16 Blood Pressure Blood Pressure [Left Arm] 130/87 129/82 Pulse Oximetry 99 100 MDM - Weakness <BETO Weeks - Last Filed: 04/01/18 19:19> Lab Data Result diagrams: 04/01/18 15:21 04/01/18 15:21 Lab Results 04/01/18 04/01/18 Range/Units 15:21 15:21 WBC 7.2 (4.5-11.0) X10^3/uL RBC 5.31 (4.5-5.9) X10^6/uL Hgb 17.3 (13.5-17.5) g/dL Hct 48.2 (41-53) % MCV 90.9 (80-100) fL MCH 32.7 (26-34) PG MCHC 35.9 (30-36) % RDW 12.9 (11.6-14.8) % Plt Count 209 (150-400) X10^3/uL Neut % (Auto) 66.2 (50-75) % Lymph % (Auto) 21.7 L (25-40) % [place] % (Auto) 8.3 (3-14) % Eos % (Auto) 2.5 (2-4) % Baso % (Auto) 1.3 (0-2) % Neut # (Auto) 4800 (4574-4629) /uL Sodium 140 (137-145) mmol/L Potassium 4.0 (3.4-5.1) mmol/L Chloride 101 (98-107) mmol/L Carbon Dioxide 26 (22-32) mmol/L BUN 23 H (9-20) mg/dL Creatinine 0.70 (0.66-1.25) mg/dL Estimated GFR > 60.0 (>60) mL/min BUN/Creatinine Ratio 32.9 H (6-22) Glucose 79 (70-100) mg/dL Calcium 9.8 (8.4-10.2) mg/dL Total Bilirubin 1.0 (0.2-1.3) mg/dL AST 19 (17-59) IU/L ALT 25 (21-72) IU/L Alkaline Phosphatase 44 (38-126) U/L Total Protein 7.2 (6.3-8.2) g/dL Albumin 4.7 (3.5-5.0) g/dL Globulin 2.5 (1.7-4.1) g/dL Albumin/Globulin Ratio 1.9 (1.0-2.8) Imaging Data MRI - head: Radiologist's impression: [address] [address] Magnetic Resonance Report Signed Patient: Rosalva Burns WMR#: [id number] : 1980Acct:[id number] Age/Sex: 37 / MDate of Service: 04/01/18 Loc: ED Accession Number: [id number] Procedure: MR head/brain wo/w con Ordering Provider: Jose Enrique Uriostegui PROCEDURE: MR HEAD/BRAIN WO/W CON INDICATIONS: decreased motor function R upper and B lower extrem TECHNIQUE: Noncontrast axial T1 spin echo, axial T2 fast spin echo, sagittal and axial FLAIR, coronal T2 fast spin echo, axial gradient echo, axial diffusion and ADC through the brain. After the administration of contrast, axial and coronal 3D VIBE or T1 spin echo with fat saturation through the brain. COMPARISON: None. FINDINGS: Image quality: Excellent. CSF Spaces: Basal cisterns are patent. No extra-axial fluid collections. Ventricles are normal in size and shape. Brain: No midline shift. No intracranial bleeds or masses. No abnormal intracranial enhancement. The brainstem appears normal. Diffusion-weighted images demonstrate no acute ischemic insults. No chronic ischemic insults. Normal intravascular flow voids are present. Skull and face: Calvarial marrow is normal in signal. Orbits appear normal. Sinuses: Sinuses and mastoids appear clear. IMPRESSION: Normal exam. Dictated by: Edis Baig M.D. on 04/01/2018 at 16:54 Approved by: Edis Baig M.D. on 04/01/2018 at 16:56 mri neck: Radiologist's impression: Signed Patient: Rosalva Burns WMR#: [id number] : 1980Acct:[id number] Age/Sex: 37 / MDate of Service: 04/01/18 Loc: ED Accession Number: [id number] Procedure: MR cervical spine wo/w con Ordering Provider: Jose Enrique Uriostegui PROCEDURE: MR CERVICAL SPINE WO/W CON INDICATIONS: decreased motor function R upper and B lower extrem TECHNIQUE: Noncontrast sagittal T1 spin echo and T2 fast spin echo, sagittal STIR, foraminal oblique sagittal T2 fast spin echo, axial gradient echo or T2 fast spin echo through the cervical spine. After the administration of contrast, axial and sagittal T1 spin echo with fat saturation through the cervical spine. COMPARISON: [facility], MR, MR CERVICAL SPINE WITH/WITHOUT CONTRAST, 02/03/2018, 19:46[facility], CT, CT CERVICAL SPINE WO CON, 03/31/2018, 11:48. FINDINGS: Image quality: Excellent. Alignment and curvature: There is normal bony alignment. There is mild focal kyphosis in the lower cervical spine. Marrow: Marrow is normal in overall signal, without suspicious enhancement. Spinal cord: Visualized spinal cord has normal size and signal. No cerebellar tonsillar herniation. No abnormal intramedullary enhancement. Paraspinous soft tissues: No paravertebral masses or suspicious enhancement. C2-3: Normal appearance. C3-4: Normal appearance. C4-5: Preserved disc height and disc desiccation. There is mild posterior disc bulge. The central canal is patent. No foraminal stenosis.. C5-6: Surgically fused. No central canal or foraminal stenosis. Unchanged from the last exam. C6-7: Surgically fused. There is mild central canal stenosis secondary to posterior osteophyte. Moderate left foraminal stenosis. No right foraminal stenosis. Unchanged from last exam. C7-T1: Normal appearance. IMPRESSION: 1. Multilevel degenerative and postsurgical as described. 2. Mild central canal stenosis at C6-C7. 3. Moderate left foraminal stenosis at C6-C7. Dictated by: Edis Baig M.D. on 04/01/2018 at 16:56 Approved by: Edis Baig M.D. on 04/01/2018 at 17:00 [facility] Narrative Medical decision making narrative: Discussed case with Dr. elena patient's neurologist who recommended going obtaining MRIs today. MRI the head was obtained was negative for any acute findings. MRI of C-spine was obtained and did show multiple level degenerative changes however no acute findings are seen. CBC and Chem panel were obtained and were unremarkable. No acute etiology of his symptoms are identified today. No beds are available over at [facility] for admission. [facility] insurance company as identified and obtained an inpatient bed for patient at [facility] for consideration for Neurology and also a psych consults. patient transferred to [facility] for further evaluation and admission <Irish Laird MD - Last Filed: 04/02/18 08:03> Lab Data Lab Results 04/01/18 04/01/18 Range/Units 15:21 15:21 WBC 7.2 (4.5-11.0) X10^3/uL RBC 5.31 (4.5-5.9) X10^6/uL Hgb 17.3 (13.5-17.5) g/dL Hct 48.2 (41-53) % MCV 90.9 (80-100) fL MCH 32.7 (26-34) PG MCHC 35.9 (30-36) % RDW 12.9 (11.6-14.8) % Plt Count 209 (150-400) X10^3/uL Neut % (Auto) 66.2 (50-75) % Lymph % (Auto) 21.7 L (25-40) % [place] % (Auto) 8.3 (3-14) % Eos % (Auto) 2.5 (2-4) % Baso % (Auto) 1.3 (0-2) % Neut # (Auto) 4800 (4298-5476) /uL Sodium 140 (137-145) mmol/L Potassium 4.0 (3.4-5.1) mmol/L Chloride 101 (98-107) mmol/L Carbon Dioxide 26 (22-32) mmol/L BUN 23 H (9-20) mg/dL Creatinine 0.70 (0.66-1.25) mg/dL Estimated GFR > 60.0 (>60) mL/min BUN/Creatinine Ratio 32.9 H (6-22) Glucose 79 (70-100) mg/dL Calcium 9.8 (8.4-10.2) mg/dL Total Bilirubin 1.0 (0.2-1.3) mg/dL AST 19 (17-59) IU/L ALT 25 (21-72) IU/L Alkaline Phosphatase 44 (38-126) U/L Total Protein 7.2 (6.3-8.2) g/dL Albumin 4.7 (3.5-5.0) g/dL Globulin 2.5 (1.7-4.1) g/dL Albumin/Globulin Ratio 1.9 (1.0-2.8) Discharge Plan Departure [facility] Disposition: [facility] Clinical Impression: Dystonia Discharge Date/Time: 04/01/18 21:31 Interventions: ED Discharge Assessment Last Done: 04/01/18 21:31 Prescriptions: No Action metformin [Glucophage] 500 MG tablet 500 mg PO BIDCC Qty: 0 RF: 0 memantine [Namenda] 10 MG tablet 10 mg PO TID Qty: 0 RF: 0 tamsulosin [Flomax] 0.4 MG capsule,extended release 24hr 0.8 mg PO QDAY Qty: 0 RF: 0 fluticasone-salmeterol [Advair Diskus] 500-50 mcg/dose blister with device 1 puff Inhalation BID RF: 0 cyclobenzaprine 10 mg tablet 10 mg PO Q8H PRN (Reason: Muscle Spasm) RF: 0 sennosides [senna] 8.6 mg Tablet 2 tab PO BID RF: 0 lisinopril 10 mg tablet 10 mg PO DAILY RF: 0 mirtazapine 15 mg Tablet 15 mg PO BEDTIME RF: 0 albuterol sulfate [ProAir HFA] 90 mcg/actuation Hfa Aerosol Inhaler 2 puff Inhalation Q4H PRN (Reason: Shortness Of Breath) RF: 0 naproxen [Naprosyn] 500 mg Tablet 1 tab PO Q12H PRN (Reason: pain) RF: 0 methylphenidate HCl 40 mg capsule,ER biphasic 50-50 1 cap PO DAILY RF: 0 fluticasone furoate 27.5 mcg/actuation [place],Suspension 2 spray Intranasal DAILY RF: 0 guanfacine [Intuniv ER] 1 mg tablet extended release 24 hr 3 tab PO DAILY RF: 0 dextroamphetamine-amphetamine [Mydayis] 50 mg capsule, ER triphasic 24 hr 1 cap PO DAILY RF: 0 ropinirole [Requip] 0.25 mg tablet 0.25 mg PO TID Qty: 90 RF: 0
[2018-04-01 12:36] VITALS: BP 136/97; PULSE 110; RESP 24; TEMP 36.7; O2SAT 100
--- NOTE | 2018-04-01 12:46 | PC.NURSE ---
pt reports via phone messaging system. he did not take the meication prescribed by dr hernandez. dr cornell notes report pt had agreed to take it. pt reports he looked up side effects and they were unacceptable pt reports he does not want to ask his friends to stay with him, he lives alone, and is seeking SNF placement for care due to his rapid decline in ability to care for himself. No change in symptoms since yesterday.
[2018-04-01 14:06] VITALS: BP 146/93; PULSE 109; RESP 16; O2SAT 100
--- NOTE | 2018-04-01 14:07 | DI.MRI.S_ITS ---
PROCEDURE: MR HEAD/BRAIN WO/W CON INDICATIONS: decreased motor function R upper and B lower extrem TECHNIQUE: Noncontrast axial T1 spin echo, axial T2 fast spin echo, sagittal and axial FLAIR, coronal T2 fast spin echo, axial gradient echo, axial diffusion and ADC through the brain. After the administration of contrast, axial and coronal 3D VIBE or T1 spin echo with fat saturation through the brain. COMPARISON: None. FINDINGS: Image quality: Excellent. CSF Spaces: Basal cisterns are patent. No extra-axial fluid collections. Ventricles are normal in size and shape. Brain: No midline shift. No intracranial bleeds or masses. No abnormal intracranial enhancement. The brainstem appears normal. Diffusion-weighted images demonstrate no acute ischemic insults. No chronic ischemic insults. Normal intravascular flow voids are present. Skull and face: Calvarial marrow is normal in signal. Orbits appear normal. Sinuses: Sinuses and mastoids appear clear. IMPRESSION: Normal exam. Dictated by: Edis Baig M.D. on 04/01/2018 at 16:54 Approved by: Edis Baig M.D. on 04/01/2018 at 16:56
--- NOTE | 2018-04-01 14:07 | DI.MRI.S_ITS ---
PROCEDURE: MR CERVICAL SPINE WO/W CON INDICATIONS: decreased motor function R upper and B lower extrem TECHNIQUE: Noncontrast sagittal T1 spin echo and T2 fast spin echo, sagittal STIR, foraminal oblique sagittal T2 fast spin echo, axial gradient echo or T2 fast spin echo through the cervical spine. After the administration of contrast, axial and sagittal T1 spin echo with fat saturation through the cervical spine. COMPARISON: [facility], MR, MR CERVICAL SPINE WITH/WITHOUT CONTRAST, 02/03/2018, 19:46. [facility], CT, CT CERVICAL SPINE WO CON, 03/31/2018, 11:48. FINDINGS: Image quality: Excellent. Alignment and curvature: There is normal bony alignment. There is mild focal kyphosis in the lower cervical spine. Marrow: Marrow is normal in overall signal, without suspicious enhancement. Spinal cord: Visualized spinal cord has normal size and signal. No cerebellar tonsillar herniation. No abnormal intramedullary enhancement. Paraspinous soft tissues: No paravertebral masses or suspicious enhancement. C2-3: Normal appearance. C3-4: Normal appearance. C4-5: Preserved disc height and disc desiccation. There is mild posterior disc bulge. The central canal is patent. No foraminal stenosis.. C5-6: Surgically fused. No central canal or foraminal stenosis. Unchanged from the last exam. C6-7: Surgically fused. There is mild central canal stenosis secondary to posterior osteophyte. Moderate left foraminal stenosis. No right foraminal stenosis. Unchanged from last exam. C7-T1: Normal appearance. IMPRESSION: 1. Multilevel degenerative and postsurgical as described. 2. Mild central canal stenosis at C6-C7. 3. Moderate left foraminal stenosis at C6-C7. Dictated by: Edis Baig M.D. on 04/01/2018 at 16:56 Approved by: Edis Baig M.D. on 04/01/2018 at 17:00
--- NOTE | 2018-04-01 15:18 | ED_ITS ---
HPI - Weakness <BETO Weeks - Last Filed: 04/01/18 19:19> General Chief complaint: Weakness Stated complaint: Can't move and spasms Time Seen by Provider: 04/01/18 12:41 Source: patient Mode of arrival: other Limitations: physical limitation History of Present Illness HPI Narrative: 37-year-old male with history of dystonia and aphasia That is a nonsmoker.here for complaint of not being able to move his right upper extremity that started a couple days ago. He also reports having increased weakness to his lower extremities as well. He denies any trauma to the upper arm. He denies any trauma to the neck or to the head. No headache. No fevers no chills. He was seen yesterday here in the emergency room for the same symptoms. He is back today because he states that he does not want to take the Requip as prescribed as he is concerned about the side effects. also has a referral to [facility] which she has not obtained an appointment as of yet. States he is concerned about being at home due to the changes in his condition and is concerned about him being able to take care of himself. he states he has nobody at home at nights not going to go home alone. Related Data Home Medications Medication Instructions Recorded Confirmed memantine [Namenda] 10 mg PO TID #0 10/10/16 04/01/18 metformin [Glucophage] 500 mg PO BIDCC #0 10/10/16 04/01/18 tamsulosin [Flomax] 0.8 mg PO QDAY #0 09/19/17 04/01/18 fluticasone-salmeterol [Advair 1 puff INHALATION BID 01/20/18 04/01/18 Diskus] albuterol sulfate [ProAir HFA] 2 puff INHALATION Q4H PRN 03/31/18 04/01/18 cyclobenzaprine 10 mg PO Q8H PRN 03/31/18 04/01/18 dextroamphetamine-amphetamine 1 cap PO DAILY 03/31/18 04/01/18 [Mydayis] fluticasone furoate 2 spray INTRANASAL DAILY 03/31/18 04/01/18 guanfacine [Intuniv ER] 3 tab PO DAILY 03/31/18 04/01/18 lisinopril 10 mg PO DAILY 03/31/18 04/01/18 methylphenidate HCl 1 cap PO DAILY 03/31/18 04/01/18 mirtazapine 15 mg PO BEDTIME 03/31/18 04/01/18 naproxen [Naprosyn] 1 tab PO Q12H PRN 03/31/18 04/01/18 sennosides [senna] 2 tab PO BID 03/31/18 04/01/18 Previous Rx's Medication Instructions Recorded ropinirole [Requip] 0.25 mg PO TID #90 tab 03/31/18 Allergies Allergy/AdvReac Type Severity Reaction Status Date / Time latex Allergy Verified 03/31/18 12:27 NSAIDS (Non-Steroidal AdvReac Mild STATES ORAL Verified 03/31/18 12:27 Anti-Inflamma [NSAIDS (NON-STEROIDAL ANTI-INFLAMMA] Review of Systems <BETO Weeks - Last Filed: 04/01/18 19:19> Constitutional Reports weakness Eyes Denies change in vision, Denies eye discharge, Denies irritation and Denies loss of vision ENT Ears, Nose, Mouth, and Throat: Denies change in voice, Denies neck pain and Denies sore throat Cardiovascular Denies chest pain, Denies irregular heart rhythm, Denies lightheadedness, Denies palpitations, Denies dyspnea, Denies dyspnea on exertion and Denies orthopnea Respiratory Denies cough, Denies dyspnea, Denies dyspnea on exertion and Denies wheezing Gastrointestinal Gastrointestinal: Denies abdominal pain, Denies change in bowel habits, Denies diarrhea, Denies nausea and Denies vomiting Genitourinary Denies hematuria, Denies flank pain, Denies urinary incontinence and Denies urinary urgency Musculoskeletal Denies neck pain Comments: inability to move the right arm and bilateral lower extremities. Integumentary/Breasts Denies pruritus, Denies erythema, Denies rash and Denies wounds Neurologic Denies confusion, Denies loss of vision and Reports weakness Psychiatric Denies anxiety, Denies confusion, Denies depression, Denies homicidal ideation and Denies suicidal ideation Endocrine Denies palpitations Hematologic/Lymphatic Denies easy bruising Allergic/Immunologic Denies wheezing Exam <BETO Weeks - Last Filed: 04/01/18 19:19> Initial Vital Signs Initial Vital Signs: Vital Signs Temperature 98 F 04/01/18 11:30 Pulse Rate 110 H 04/01/18 11:30 Respiratory Rate 24 04/01/18 11:30 Blood Pressure 136/97 H 04/01/18 11:30 Pulse Oximetry 100 04/01/18 11:30 Const General: cooperative and well developed Nutritional Appearance: well nourished Orientation: alert, awake, oriented x3 and not confused [facility] Mouth: oral mucosae normal and oropharynx normal Eyes Conjunctivae: conjunctivae normal Sclera: sclerae normal Pupils: PERRL EOM: EOM intact bilaterally Neck Neck: normal visual inspection, trachea midline, No lymphadenopathy, No midline deformity and No JVD Lymphatic: No lymphedema Resp Effort & Inspection: normal respiratory effort, able to speak in complete sentences, no respiratory distress and no use of accessory muscles Auscultation: clear to auscultation bilaterally, no rales, no rhonchi and no wheezes Cardio Rate: regular rate Rhythm: regular rhythm Heart Sounds: no click, no gallops, no murmurs and no rubs Pulses: normal peripheral pulses Skin General: no rashes or lesions noted, No jaundice and No petechiae Neuro General: alert, awake, oriented x3, does not move all extremities and unable to assess gait Cranial Nerves: CN's II-XI intact bilaterally Speech: other ( does not speak use his phone to communicate. ) Gait: staggering Sensory Exam: no sensory deficits noted Other: sensation intact to all 4 extremities. Does not move his right arm or bilateral Lower extremities. Extrem Other: distal pulses to all 4 extremities intact <Irish Laird MD - Last Filed: 04/02/18 08:03> Initial Vital Signs Initial Vital Signs: Vital Signs Temperature 98 F 04/01/18 11:30 Pulse Rate 110 H 04/01/18 11:30 Respiratory Rate 24 04/01/18 11:30 Blood Pressure 136/97 H 04/01/18 11:30 Pulse Oximetry 100 04/01/18 11:30 Course <BETO Weeks - Last Filed: 04/01/18 19:19> Orders Ordered: Discontinued Medications Sodium Chloride (Normal Saline 0.9%) 1,000 mls @ 1,000 mls/hr IV BOLUS ONE Stop: 04/01/18 16:12 Last Infusion: 04/01/18 17:45 Dose: 0 mls/hr Admin: 04/01/18 15:38 Dose: 1,000 mls/hr Lorazepam (Ativan) 1 mg IV NOW ONE Stop: 04/01/18 15:14 Last Admin: 04/01/18 15:38 Dose: 1 mg Vital Signs - 8 hr 04/01/18 11:30 04/01/18 12:36 04/01/18 14:06 Temperature 98 F 98.0 F Pulse Rate 110 H 110 H 109 H Respiratory Rate 24 24 16 Blood Pressure 136/97 H Blood Pressure [Left Arm] 136/97 H 146/93 H Pulse Oximetry 100 100 100 04/01/18 15:29 04/01/18 17:50 Temperature Pulse Rate 107 H 96 H Respiratory Rate 14 16 Blood Pressure Blood Pressure [Left Arm] 130/87 129/82 Pulse Oximetry 99 100 <Irish Laird MD - Last Filed: 04/02/18 08:03> Orders Ordered: Discontinued Medications Sodium Chloride (Normal Saline 0.9%) 1,000 mls @ 1,000 mls/hr IV BOLUS ONE Stop: 04/01/18 16:12 Last Infusion: 04/01/18 17:45 Dose: 0 mls/hr Admin: 04/01/18 15:38 Dose: 1,000 mls/hr Lorazepam (Ativan) 1 mg IV NOW ONE Stop: 04/01/18 15:14 Last Admin: 04/01/18 15:38 Dose: 1 mg Vital Signs - 8 hr 04/01/18 11:30 04/01/18 12:36 04/01/18 14:06 Temperature 98 F 98.0 F Pulse Rate 110 H 110 H 109 H Respiratory Rate 24 24 16 Blood Pressure 136/97 H Blood Pressure [Left Arm] 136/97 H 146/93 H Pulse Oximetry 100 100 100 04/01/18 15:29 04/01/18 17:50 Temperature Pulse Rate 107 H 96 H Respiratory Rate 14 16 Blood Pressure Blood Pressure [Left Arm] 130/87 129/82 Pulse Oximetry 99 100 MDM - Weakness <BETO Weeks - Last Filed: 04/01/18 19:19> Lab Data Result diagrams: 04/01/18 15:21 04/01/18 15:21 Lab Results 04/01/18 04/01/18 Range/Units 15:21 15:21 WBC 7.2 (4.5-11.0) X10^3/uL RBC 5.31 (4.5-5.9) X10^6/uL Hgb 17.3 (13.5-17.5) g/dL Hct 48.2 (41-53) % MCV 90.9 (80-100) fL MCH 32.7 (26-34) PG MCHC 35.9 (30-36) % RDW 12.9 (11.6-14.8) % Plt Count 209 (150-400) X10^3/uL Neut % (Auto) 66.2 (50-75) % Lymph % (Auto) 21.7 L (25-40) % [place] % (Auto) 8.3 (3-14) % Eos % (Auto) 2.5 (2-4) % Baso % (Auto) 1.3 (0-2) % Neut # (Auto) 4800 (6785-5311) /uL Sodium 140 (137-145) mmol/L Potassium 4.0 (3.4-5.1) mmol/L Chloride 101 (98-107) mmol/L Carbon Dioxide 26 (22-32) mmol/L BUN 23 H (9-20) mg/dL Creatinine 0.70 (0.66-1.25) mg/dL Estimated GFR > 60.0 (>60) mL/min BUN/Creatinine Ratio 32.9 H (6-22) Glucose 79 (70-100) mg/dL Calcium 9.8 (8.4-10.2) mg/dL Total Bilirubin 1.0 (0.2-1.3) mg/dL AST 19 (17-59) IU/L ALT 25 (21-72) IU/L Alkaline Phosphatase 44 (38-126) U/L Total Protein 7.2 (6.3-8.2) g/dL Albumin 4.7 (3.5-5.0) g/dL Globulin 2.5 (1.7-4.1) g/dL Albumin/Globulin Ratio 1.9 (1.0-2.8) Imaging Data MRI - head: Radiologist's impression: [address] [address] Magnetic Resonance Report Signed Patient: Rosalva Burns WMR#: [id number] : 1980Acct:[id number] Age/Sex: 37 / MDate of Service: 04/01/18 Loc: ED Accession Number: [id number] Procedure: MR head/brain wo/w con Ordering Provider: Jose Enrique Uriostegui PROCEDURE: MR HEAD/BRAIN WO/W CON INDICATIONS: decreased motor function R upper and B lower extrem TECHNIQUE: Noncontrast axial T1 spin echo, axial T2 fast spin echo, sagittal and axial FLAIR, coronal T2 fast spin echo, axial gradient echo, axial diffusion and ADC through the brain. After the administration of contrast, axial and coronal 3D VIBE or T1 spin echo with fat saturation through the brain. COMPARISON: None. FINDINGS: Image quality: Excellent. CSF Spaces: Basal cisterns are patent. No extra-axial fluid collections. Ventricles are normal in size and shape. Brain: No midline shift. No intracranial bleeds or masses. No abnormal intracranial enhancement. The brainstem appears normal. Diffusion-weighted images demonstrate no acute ischemic insults. No chronic ischemic insults. Normal intravascular flow voids are present. Skull and face: Calvarial marrow is normal in signal. Orbits appear normal. Sinuses: Sinuses and mastoids appear clear. IMPRESSION: Normal exam. Dictated by: Edis Baig M.D. on 04/01/2018 at 16:54 Approved by: Edis Baig M.D. on 04/01/2018 at 16:56 mri neck: Radiologist's impression: Signed Patient: Rosalva Burns WMR#: [id number] : 1980Acct:[id number] Age/Sex: 37 / MDate of Service: 04/01/18 Loc: ED Accession Number: [id number] Procedure: MR cervical spine wo/w con Ordering Provider: Jose Enrique Uriostegui PROCEDURE: MR CERVICAL SPINE WO/W CON INDICATIONS: decreased motor function R upper and B lower extrem TECHNIQUE: Noncontrast sagittal T1 spin echo and T2 fast spin echo, sagittal STIR, foraminal oblique sagittal T2 fast spin echo, axial gradient echo or T2 fast spin echo through the cervical spine. After the administration of contrast, axial and sagittal T1 spin echo with fat saturation through the cervical spine. COMPARISON: [facility], MR, MR CERVICAL SPINE WITH/WITHOUT CONTRAST , 02/03/2018, 19:46[facility], CT, CT CERVICAL SPINE WO CON, 03/31/2018, 11 :48. FINDINGS: Image quality: Excellent. Alignment and curvature: There is normal bony alignment. There is mild focal kyphosis in the lower cervical spine. Marrow: Marrow is normal in overall signal, without suspicious enhancement. Spinal cord: Visualized spinal cord has normal size and signal. No cerebellar tonsillar herniation. No abnormal intramedullary enhancement. Paraspinous soft tissues: No paravertebral masses or suspicious enhancement. C2-3: Normal appearance. C3-4: Normal appearance. C4-5: Preserved disc height and disc desiccation. There is mild posterior disc bulge. The central canal is patent. No foraminal stenosis.. C5-6: Surgically fused. No central canal or foraminal stenosis. Unchanged from the last exam. C6-7: Surgically fused. There is mild central canal stenosis secondary to posterior osteophyte. Moderate left foraminal stenosis. No right foraminal stenosis. Unchanged from last exam. C7-T1: Normal appearance. IMPRESSION: 1. Multilevel degenerative and postsurgical as described. 2. Mild central canal stenosis at C6-C7. 3. Moderate left foraminal stenosis at C6-C7. Dictated by: Edis Baig M.D. on 04/01/2018 at 16:56 Approved by: Edis Baig M.D. on 04/01/2018 at 17:00 [facility] Narrative Medical decision making narrative: Discussed case with Dr. elena patient's neurologist who recommended going obtaining MRIs today. MRI the head was obtained was negative for any acute findings. MRI of C-spine was obtained and did show multiple level degenerative changes however no acute findings are seen. CBC and Chem panel were obtained and were unremarkable. No acute etiology of his symptoms are identified today. No beds are available over at [facility] for admission. [facility] insurance company as identified and obtained an inpatient bed for patient at [place] for consideration for Neurology and also a psych consults. patient transferred to [facility] for further evaluation and admission <Irish Laidr MD - Last Filed: 04/02/18 08:03> Lab Data Lab Results 04/01/18 04/01/18 Range/Units 15:21 15:21 WBC 7.2 (4.5-11.0) X10^3/uL RBC 5.31 (4.5-5.9) X10^6/uL Hgb 17.3 (13.5-17.5) g/dL Hct 48.2 (41-53) % MCV 90.9 (80-100) fL MCH 32.7 (26-34) PG MCHC 35.9 (30-36) % RDW 12.9 (11.6-14.8) % Plt Count 209 (150-400) X10^3/uL Neut % (Auto) 66.2 (50-75) % Lymph % (Auto) 21.7 L (25-40) % [place] % (Auto) 8.3 (3-14) % Eos % (Auto) 2.5 (2-4) % Baso % (Auto) 1.3 (0-2) % Neut # (Auto) 4800 (0769-0565) /uL Sodium 140 (137-145) mmol/L Potassium 4.0 (3.4-5.1) mmol/L Chloride 101 (98-107) mmol/L Carbon Dioxide 26 (22-32) mmol/L BUN 23 H (9-20) mg/dL Creatinine 0.70 (0.66-1.25) mg/dL Estimated GFR > 60.0 (>60) mL/min BUN/Creatinine Ratio 32.9 H (6-22) Glucose 79 (70-100) mg/dL Calcium 9.8 (8.4-10.2) mg/dL Total Bilirubin 1.0 (0.2-1.3) mg/dL AST 19 (17-59) IU/L ALT 25 (21-72) IU/L Alkaline Phosphatase 44 (38-126) U/L Total Protein 7.2 (6.3-8.2) g/dL Albumin 4.7 (3.5-5.0) g/dL Globulin 2.5 (1.7-4.1) g/dL Albumin/Globulin Ratio 1.9 (1.0-2.8) Discharge Plan Departure Patient Disposition: [facility] Clinical Impression: Dystonia Discharge Date/Time: 04/01/18 21:31 Interventions: ED Discharge Assessment Last Done: 04/01/18 21:31 Prescriptions: No Action metformin [Glucophage] 500 MG tablet 500 mg PO BIDCC Qty: 0 RF: 0 memantine [Namenda] 10 MG tablet 10 mg PO TID Qty: 0 RF: 0 tamsulosin [Flomax] 0.4 MG capsule,extended release 24hr 0.8 mg PO QDAY Qty: 0 RF: 0 fluticasone-salmeterol [Advair Diskus] 500-50 mcg/dose blister with device 1 puff Inhalation BID RF: 0 cyclobenzaprine 10 mg tablet 10 mg PO Q8H PRN (Reason: Muscle Spasm) RF: 0 sennosides [senna] 8.6 mg Tablet 2 tab PO BID RF: 0 lisinopril 10 mg tablet 10 mg PO DAILY RF: 0 mirtazapine 15 mg Tablet 15 mg PO BEDTIME RF: 0 albuterol sulfate [ProAir HFA] 90 mcg/actuation Hfa Aerosol Inhaler 2 puff Inhalation Q4H PRN (Reason: Shortness Of Breath) RF: 0 naproxen [Naprosyn] 500 mg Tablet 1 tab PO Q12H PRN (Reason: pain) RF: 0 methylphenidate HCl 40 mg capsule,ER biphasic 50-50 1 cap PO DAILY RF: 0 fluticasone furoate 27.5 mcg/actuation [place],Suspension 2 spray Intranasal DAILY RF: 0 guanfacine [Intuniv ER] 1 mg tablet extended release 24 hr 3 tab PO DAILY RF: 0 dextroamphetamine-amphetamine [Mydayis] 50 mg capsule, ER triphasic 24 hr 1 cap PO DAILY RF: 0 ropinirole [Requip] 0.25 mg tablet 0.25 mg PO TID Qty: 90 RF: 0
[2018-04-01 15:28] LABS: Add Manual Diff / Slide Review NO; Basophils Percent Auto 1.3 % (0-2); Eosinophils Percent Auto 2.5 % (2-4); Hematocrit 48.2 % (41-53); Hemoglobin 17.3 g/dL (13.5-17.5); Lymphocytes Percent Auto 21.7 % (25-40); Mean Corpuscular HGB Conc 35.9 % (30-36); Mean Corpuscular Hemoglobin 32.7 PG (26-34); Mean Corpuscular Volume 90.9 fL (80-100); Monocytes Percent Auto 8.3 % (3-14); Neutrophils Absolute Auto 4800 /uL (3000-5900); Neutrophils Percent Auto 66.2 % (50-75); Platelet Count 209 X10^3/uL (150-400); Red Blood Cell Count 5.31 X10^6/uL (4.5-5.9); Red Cell Distribution Width 12.9 % (11.6-14.8); White Blood Cell Count 7.2 X10^3/uL (4.5-11.0)
[2018-04-01 15:29] VITALS: BP 130/87; PULSE 107; RESP 14; O2SAT 99
[2018-04-01] MEDS: SODIUM CHLORIDE 0.9% 1,000 ML 1000 ML IV (15:38)
[2018-04-01] MEDS: LORazepam 2 MG/ML SYRINGE 1 MG IV (15:38)
[2018-04-01 15:46] LABS: Alanine Aminotransferase 25 IU/L (21-72); Albumin 4.7 g/dL (3.5-5.0); Albumin Globulin Ratio 1.9 (1.0-2.8); Alkaline Phosphatase 44 U/L (38-126); Aspartate Aminotransferase 19 IU/L (17-59); BUN Creatinine Ratio 32.9 (6-22); Blood Urea Nitrogen 23 mg/dL (9-20); Calcium 9.8 mg/dL (8.4-10.2); Carbon Dioxide 26 mmol/L (22-32); Chloride 101 mmol/L (98-107); Estimated Glomerular Filt Rate > 60.0 mL/min (>60); Globulin 2.5 g/dL (1.7-4.1); Glucose 79 mg/dL (70-100); HEMOLYSIS 31 (0-50); Sodium 140 mmol/L (137-145); Total Protein 7.2 g/dL (6.3-8.2)
--- NOTE | 2018-04-01 17:19 | PC.NURSE ---
This nurse explained to Dr Irvin that the ED requested TIMBER SURVEYOR consult for patient in the ED....TIMBER SURVEYOR unavailable until tomorrow. Requested Dr Irvin admit patient as Observation until an TIMBER SURVEYOR is available; Per Dr Irvin, ED Provider needs to call her if the recommendation is to admit the patient;
[2018-04-01 17:50] VITALS: BP 129/82; PULSE 96; RESP 16; O2SAT 100
[2018-04-01 21:31] VITALS: BP 129/83; PULSE 99; RESP 18; O2SAT 100
== END 2018-04-01 21:31 | disposition short-term general hospital (02) ==
PROVIDERS: Emergency Provider Nurse Practitioner Family; Family Provider Family Medicine; PCP Family Medicine
DX: G24.9 Dystonia, unspecified (principal)
CPT/HCPCS: 70553; 72156; 80053; 85025; 96361; 96374; 99283; 99285; A9579; J2060

== ENCOUNTER 2018-09-17 10:25 | Emergency (ER) | payer OTHER, MEDICAID, SELFPAY ==
[2018-09-17 10:40] VITALS: BP 147/96; PULSE 74; RESP 18; TEMP 36.7; O2SAT 100
--- NOTE | 2018-09-17 12:36 | ED_ITS ---
HPI - Male Genitourinary <Alla Hendrixmer, DEPARTMENT ADMINISTRATOR-BC - Last Filed: 09/17/18 19:27> General Chief complaint: Urogenital-Male Stated complaint: CATHETOR FLUSH PROBLEM Time Seen by Provider: 09/17/18 12:13 Source: patient Mode of arrival: ambulatory Limitations: no limitations History of Present Illness HPI Narrative: Patient is a 38-year-old male nonsmoker with history of neurological disorder that is currently being worked up as well as ADHD. He has had a suprapubic catheter since July, which was most recently replaced last week. He states last night that his suprapubic catheter stops draining, he has had a history of blocked suprapubic catheters. He states he attempted to flush it, without success. He states he had some chills once he started retaining urine. He called his urology office, which is Dr. Gibbons with [facility] at [place]. he denies any abdominal pain, fevers, vomiting or diarrhea. Denies any chest pain shortness of breath. He denies any other complaints today. Related Data Home Medications Medication Instructions Recorded Confirmed fluticasone propion-salmeterol 1 puff INHALATION BID 01/20/18 09/17/18 [Advair Diskus] mirtazapine 15 mg PO BEDTIME 03/31/18 09/17/18 naproxen [Naprosyn] 1 tab PO Q12H PRN 03/31/18 09/17/18 sennosides [senna] 17.2 mg PO BEDTIME 03/31/18 09/17/18 albuterol sulfate [Ventolin HFA] 2 puff INHALATION Q4H PRN 09/17/18 09/17/18 guanfacine [Intuniv ER] 3 mg PO QPM 09/17/18 09/17/18 memantine [Namenda] 10 mg PO TID 09/17/18 09/17/18 methylphenidate HCl 20 mg PO DAILY 09/17/18 09/17/18 methylphenidate HCl [Concerta] 36 mg PO 1000 09/17/18 09/17/18 montelukast [Singulair] 10 mg PO QPM 09/17/18 09/17/18 ondansetron 4 mg PO TID PRN 09/17/18 09/17/18 oxycodone 5 mg PO PRN PRN 09/17/18 09/17/18 tetrabenazine 12.5 mg PO Q8H 09/17/18 09/17/18 tramadol 100 mg PO DAILY 09/17/18 09/17/18 Previous Rx's Medication Instructions Recorded armodafinil 200 mg tablet 200 mg PO QAM #30 tab 07/02/18 Allergies Allergy/AdvReac Type Severity Reaction Status Date / Time acetaminophen [From Tylenol] Allergy Intermediate Hives Verified 09/17/18 10:43 latex Allergy Verified 09/17/18 10:43 Review of Systems <MAHI Mendez - Last Filed: 09/17/18 19:27> Review of Systems GENERAL: Denies chills, fatigue, malaise, fever, sweats. HEENT: Denies sinus pain, ear pain, sore throat, difficulty swallowing, dizziness. RESPIRATORY: Denies dyspnea, cough, wheezing, hemoptysis, sputum. CARDIOVASCULAR: Denies chest pain, palpitations, orthopnea, edema, GASTROINTESTINAL: Denies nausea, vomiting, abdominal pain, diarrhea, constipation, melena. : See HPI MUSCULOSKELETAL: denies weakness, joint pain, or bony pain SKIN: Denies rash, skin lesions, or other NEUROLOGIC: Denies weakness, headache, numbness, change in speech, confusion, seizures, incoordination. PSYCHIATRIC: No concerning psychosocial issues. 12 point review of systems is negative except for those stated above PFSH <MAHI Mendez - Last Filed: 09/17/18 19:27> Medical History Obstructive sleep apnea of adult (Chronic) Narcolepsy with cataplexy (Chronic) Hypersomnia (Chronic) Aphasia (Acute) Cervical radicular pain (Acute) Dystonia (Acute) Bipolar 1 disorder (Ruled-out) Surgical History S/P cervical spinal fusion (Acute) Social History marital status: unmarried,single household members: family lives independently: Yes housing: house occupational status: disabled Smoking Status: Never smoker Social History marital status: unmarried,single household members: family lives independently: Yes housing: house occupational status: disabled Smoking Status: Never smoker Exam <APRIL Mendez - Last Filed: 09/17/18 19:27> Narrative Exam Narrative: GENERAL: This is a well-nourished, well-developed patient, in no acute distress HEAD: Atraumatic. Normocephalic. No temporal or scalp tenderness. EYES: Pupils equal round and reactive. Extraocular motions intact. No scleral icterus. No injection or drainage. ENT: Nose without bleeding, purulent drainage or septal hematoma. Throat without erythema, tonsillar hypertrophy or exudate. Uvula midline. Airway patent. NECK: Trachea midline. No JVD or lymphadenopathy. Supple, nontender, no meningeal signs. CARDIOVASCULAR: Regular rate and rhythm without murmurs, gallops, or rubs. RESPIRATORY: Clear to auscultation. Breath sounds equal bilaterally. No wheezes, rales, or rhonchi. no cough. No increased respiratory effort. No accessory muscle use. GASTROINTESTINAL: Abdomen soft, non-tender, nondistended. No hepato- splenomegaly, or palpable masses. No guarding. Active bowel sounds all 4 quadrants. Suprapubic catheter in place. No erythema or drainage around the insertion site. Slight sediment yellow urine noted in drainage catheter. EXTREMITIES: No clubbing, cyanosis, or edema. No joint tenderness, effusion, or edema noted. BACK: Nontender without deformity or crepitance. No flank tenderness. NEURO: AOx3. SKIN: No rash or erythema. Initial Vital Signs Initial Vital Signs: Vital Signs Temperature 98.1 F 09/17/18 10:40 Pulse Rate 74 09/17/18 10:40 Respiratory Rate 18 09/17/18 10:40 Blood Pressure 147/96 H 09/17/18 10:40 Pulse Oximetry 100 09/17/18 10:40 <Aditya Abdullahi DO - Last Filed: 09/17/18 20:46> Initial Vital Signs Initial Vital Signs: Vital Signs Temperature 98.1 F 09/17/18 10:40 Pulse Rate 74 09/17/18 10:40 Respiratory Rate 18 09/17/18 10:40 Blood Pressure 147/96 H 09/17/18 10:40 Pulse Oximetry 100 09/17/18 10:40 Course <RAHUL Mendez-BC - Last Filed: 09/17/18 19:27> Course Narrative: The patient was initially bladder scanned for 600- 700 cc. Nursing staff attempted to flush the patient's suprapubic catheter without success. Orders Ordered: ED Orders 09/17/18 14:30 Urine Culture Stat Urine Microscopic Stat Consultations Consultation #1: I spoke with Dr. Truong from [facility]. She states to please place a Fernandez catheter so that the patient's urine can drain. Per his recent cystoscopy, there is no reason why he should not be able to have a Fernandez catheter. I discussed this with the patient who was reticent to have a Fernandez catheter placed. He states that the last time was very traumatic. I offered him medication to help him relax prior to the procedure. He states he will call his friend to see if he can get a ride down to his urologist office. I discussed at length that we cannot replace the suprapubic catheter in the emergency department as that is urology procedure. Dr Truong also states to not replace the suprapubic catheter given its recent placement, it is likely to close. Time: 14:00 Consultation #2: I spoke with Urology from [facility] again. I spoke with Dr. Truong regarding the fact that the patient urinated over a L after his previous bladder scan was declining a Fernandez catheter. I am okay with that at this point in time as he is appearing to empty his bladder. He initially had a postvoid residual 300 cc, but was able to urinate again. She states that this is okay and needs to follow up with his urologist. I discussed that he has leukocyte esterase in his urine, likely due to suprapubic catheter. She is okay not treating this at this point time. Time: 15:19 Vital Signs - 8 hr 09/17/18 14:50 Temperature 98.3 F Pulse Rate 76 Respiratory Rate 16 Blood Pressure [Left Arm] 146/92 H Pulse Oximetry 99 <Aditya Abdullahi DO - Last Filed: 09/17/18 20:46> Orders Ordered: ED Orders 09/17/18 14:30 Urine Culture Stat Urine Microscopic Stat Vital Signs - 8 hr 09/17/18 14:50 Temperature 98.3 F Pulse Rate 76 Respiratory Rate 16 Blood Pressure [Left Arm] 146/92 H Pulse Oximetry 99 MDM - Male Genitourinary <MAHI MendezBC - Last Filed: 09/17/18 19:27> Lab Data Lab Results 09/17/18 Range/Units 14:30 Urine RBC None seen (0-5/HPF) Urine WBC 5-10/hpf H (0-5/HPF) Ur Squamous Epith Cells 0-1 /hpf Amorphous Sediment 1+ Urine Bacteria Occasional (0-1) (None) Ur Culture Indicated? Specimen cultured Urine Dip Bedside Urine Glucose Negative Bedside Urine Bilirubin - Negative Bedside Urine Ketone +/- 5 Urine Specific [place] 1.015 Bedside Urine Occult Blood - Negative Bedside Urine pH 6.5 Bedside Urine Protein - Negative Bedside Urine Urobilinogen - Negative Bedside Urine Nitrite - Negative Bedside Urine Leukocytes +/- 15 Esterase MDM Narrative Medical decision making narrative: The patient is a 38-year-old male who presents with chief complaint of urinary retention. He has a suprapubic catheter which has not been draining since last night. He is requesting that I change it out. I told him that is a urology procedure that will not be done in the emergency department at this point in time. I spoke with his urologist salon manager, who suggested a Fernandez catheter. The patient declined a urinary catheter, but was able to empty his bladder 3 urination. I discussed the patient again with Urology, who stated the patient was okay to follow up his urologist. The patient does have incidental leukocyte esterase, however I feel that is most likely due to having a suprapubic as he is asymptomatic and afebrile. I discussed at length that he has a follow-up with primary care provider monitors urinary output. Patient has no questions or concerns. Discussed return precautions of fever, and inability to urinate, etc <Aditya Abdullahi DO - Last Filed: 09/17/18 20:46> Lab Data Lab Results 09/17/18 Range/Units 14:30 Urine RBC None seen (0-5/HPF) Urine WBC 5-10/hpf H (0-5/HPF) Ur Squamous Epith Cells 0-1 /hpf Amorphous Sediment 1+ Urine Bacteria Occasional (0-1) (None) Ur Culture Indicated? Specimen cultured Urine Dip Bedside Urine Glucose Negative Bedside Urine Bilirubin - Negative Bedside Urine Ketone +/- 5 Urine Specific [place] 1.015 Bedside Urine Occult Blood - Negative Bedside Urine pH 6.5 Bedside Urine Protein - Negative Bedside Urine Urobilinogen - Negative Bedside Urine Nitrite - Negative Bedside Urine Leukocytes +/- 15 Esterase Discharge Plan Departure Patient Disposition: Home Clinical Impression: Acute urinary retention Blocked suprapubic catheter Qualifiers: Encounter type: initial encounter Qualified Code(s): T83.090A - Other mechanical complication of cystostomy catheter, initial encounter Discharge Date/Time: 09/17/18 15:39 Interventions: ED Discharge Assessment Last Done: 09/17/18 15:39 Instructions: How to Care for a Suprapubic Catheter, DI for Urinary Retention in Men Activity Restrictions/Additional Instructions: You're able to empty her bladder in the emergency department today. I spoke with Urology from [facility] in [place] and they would like you to follow up with them. Please make sure you are continuing to urinate and be evaluated if her concern at all but retention or have fever or any acute concerns. Prescriptions: No Action armodafinil [Nuvigil] 200 mg tablet 200 mg PO QAM Qty: 30 RF: 0 fluticasone propion-salmeterol [Advair Diskus] 500-50 mcg/dose blister with device 1 puff Inhalation BID RF: 0 sennosides [senna] 8.6 mg Tablet 17.2 mg PO BEDTIME RF: 0 mirtazapine 15 mg Tablet 15 mg PO BEDTIME RF: 0 naproxen [Naprosyn] 500 mg Tablet 1 tab PO Q12H PRN (Reason: pain) RF: 0 methylphenidate HCl 20 mg Tablet Extended Release 20 mg PO DAILY RF: 0 montelukast [Singulair] 10 mg Tablet 10 mg PO QPM RF: 0 albuterol sulfate [Ventolin HFA] 90 mcg/actuation Hfa Aerosol Inhaler 2 puff INHALATION Q4H PRN (Reason: Shortness Of Breath) RF: 0 methylphenidate HCl [Concerta] 36 mg Tablet Extended Release 24hr 36 mg PO 1000 RF: 0 oxycodone 5 mg Tablet 5 mg PO PRN PRN (Reason: pain) RF: 0 memantine [Namenda] 10 mg Tablet 10 mg PO TID RF: 0 tramadol 100 mg Tablet Extended Release 24 Hr 100 mg PO DAILY RF: 0 guanfacine [Intuniv ER] 3 mg Tablet Extended Release 24 Hr 3 mg PO QPM RF: 0 ondansetron 4 mg Tablet,Disintegrating 4 mg PO TID PRN (Reason: Nausea) RF: 0 tetrabenazine 12.5 mg Tablet 12.5 mg PO Q8H RF: 0 Referrals: Ney Rodriguez MD [Primary Care Provider] - <Aditya Abdullahi DO - Last Filed: 09/17/18 20:46> Cosign ED Attending Cosignature Attestation: I was immediately available in the department for consultation. Documentation has been reviewed. I agree with assessment and plan.
[2018-09-17 14:50] VITALS: BP 146/92; PULSE 76; RESP 16; TEMP 36.8; O2SAT 99
[2018-09-17 15:19] LABS: RBC Urine None Seen (0-5/HPF)
[2018-09-17 15:27] LABS: Squamous Epithelial Cell Urine 0-1 /HPF; WBC Urine 5-10/HPF (0-5/HPF)
[2018-09-17 15:28] LABS: Amorphous Sediment Urine 1+; Bacteria Urine Occasional (0-1); Culture Indicated Urine Specimen Cultured
== END 2018-09-17 15:39 | disposition home or self-care (01) ==
PROVIDERS: Emergency Provider Nurse Practitioner Family; Family Provider Family Medicine; PCP Family Medicine
DX: R33.8 Other retention of urine (principal); T83.090A Other mechanical complication of cystostomy catheter, initial encounter
CPT/HCPCS: 51798; 81003; 81015; 87077; 87086; 87186; 99282; 99284